=== PATIENT | female | born 1990 | race African-American/Black ===

== ENCOUNTER 2024-10-02 19:23 | Emergency (ER) | payer OTHER, SELFPAY ==
[2024-10-02 19:30] VITALS: BP 156/94; PULSE 119; RESP 16; TEMP 37.1; O2SAT 98; BMI 29.9
[2024-10-02] MEDS: ACETAMINOPHEN 325 MG TABLET 975 MG PO (20:07)
[2024-10-02 20:27] VITALS: PULSE 80; O2SAT 98
[2024-10-02 22:51] LABS: Add Manual Diff / Slide Review NO; Hematocrit 38.9 % (36-46); Hemoglobin 12.8 g/dL (12.0-16.0); Lymphocytes Absolute Auto 1700 /uL (1100-4500); Mean Corpuscular HGB Conc 33.0 % (30-36); Mean Corpuscular Hemoglobin 28.0 PG (26-34); Mean Corpuscular Volume 84.9 fL (80-100); Platelet Count 249 X10^3/uL (150-400)
[2024-10-02 22:57] LABS: Acetaminophen < 10 ug/mL (10-30); Alanine Aminotransferase 22 IU/L (<35); Albumin 4.4 g/dL (3.5-5.0); Albumin Globulin Ratio 1.0 (1.0-2.8); Alkaline Phosphatase 88 U/L (38-126); Blood Urea Nitrogen 9 mg/dL (7-17); Calcium 9.2 mg/dL (8.4-10.2); Carbon Dioxide 22 mmol/L (22-32); Chloride 107 mmol/L (98-107); Estimated Glomerular Filt Rate > 60 mL/min (>60); Ethanol (ETOH) < 10 mg/dL (<10); Globulin 4.3 g/dL (1.7-4.1); Glucose 99 mg/dL (70-99); HEMOLYSIS < 15 (0-50); Potassium 3.8 mmol/L (3.4-5.1); Salicylate < 1.0 mg/dL (<20); Sodium 138 mmol/L (137-145); Total Protein 8.7 g/dL (6.3-8.2)
--- NOTE | 2024-10-02 23:07 | EKG_ITS ---
[address] [address] Test Date: 2024-10-02 Pat Name: Mirtha Morales Department: [facility] Room: Gender: Female Toe Stripper: tabby : 1990 Requested By: Order Number: [id number] Reading MD: Rodri Jimenez Measurements Intervals [place] Rate: 65 P: 56 WA: 126 QRS: 62 QRSD: 78 T: 47 QT: 410 QTc: 426 Interpretive Statements Normal sinus rhythm Electronically Signed On 10-05-2024 8:01:56 PDT by Rodri Jimenez
[2024-10-02 23:11] LABS: UR Morphine/Opiate cutoff 300 Negative (Negative); Ur Specific Gravity Normal (Normal); Urine MDMA Negative (Negative); Urine Methamphetamines Negative (Negative); Urine Tetrahydrocannabinol Negative (Negative); Urine Tricyclic Antidepressant Negative (Negative)
[2024-10-02 23:28] LABS: TSH w/ Reflex to FT4 1.40 uIU/mL (0.47-4.68)
[2024-10-02 23:46] LABS: Culture Indicated Urine Cult Not Indicated
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
--- NOTE | 2024-10-03 02:09 | PC.NURSE ---
CHIEF INNOVATION OFFICER note: Attempting to find placement for patient. Called the following places with the following results: [facility]: 0202 spoke with Kristin, they have no beds. [facility]: 0203 spoke with Linda. She said they do have beds, but the patient has to have insurance. She told me that the patient has to start her medicaid application to at least be considered for admission. Thanked her for her help. I will speak to Dr. Ceja
[2024-10-03 11:32] LABS: COVID19 -Nasal RAPID Negative (Negative)
--- NOTE | 2024-10-03 11:32 | PC.NURSE ---
Per Joan ASSEMBLER EQUIPMENT pt status changed to moderate risk. Pt is no longer endorsing SI.
--- NOTE | 2024-10-03 13:41 | PC.NURSE ---
This RN breaking sitter for lunch. Pt laying on stretcher, NAD, RA, breathing even/equal/unlabored at this time.
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
--- NOTE | 2024-10-03 16:51 | CM.SWNOTE ---
ED LOW VOLTAGE ELECTRICIAN Note Patient endorses preference to go to a local facility. LOW VOLTAGE ELECTRICIAN assistance patient in identifying and accessing insurance throughout the day and patient has current [employer] insurance. LOW VOLTAGE ELECTRICIAN calls [facility] intake, it is reported that they are at capacity. LOW VOLTAGE ELECTRICIAN calls [facility] intake, it is initially reported that they have beds. LOW VOLTAGE ELECTRICIAN faxes clinicals for review. [facility] calls back and reports that they will not have beds until tomorrow. LOW VOLTAGE ELECTRICIAN calls [facility] intake, it is reported that they have beds and can review patient. LOW VOLTAGE ELECTRICIAN faxes clinicals for review. Bonnie at [facility] calls to report that patient is accepted by Accepting provider Marta Claudio RN-RN [phone]. It is reported that patient can arrive at 2100 or after. LOW VOLTAGE ELECTRICIAN calls [facility], it is reported that they cannot accommodate the transfer. LOW VOLTAGE ELECTRICIAN calls [facility], it is reported that they can pick up operator patient at 2120. Plan: patient to transfer to [facility] via BLS this evening for voluntary inpatient treatment. Joan Menchaca, COMPUTER REPAIR INSTRUCTOR
--- NOTE | 2024-10-03 20:15 | PC.NURSE ---
Patient assessment deferred at this time patient is resting with eyes closed, respirations are even and nonlabored
[2024-10-03 21:03] VITALS: BP 115/60; PULSE 92; RESP 16; TEMP 36.5; O2SAT 100
== END 2024-10-03 21:10 ==
PROVIDERS: Family Medicine; Emergency Provider Family Medicine
DX: R45.851 Suicidal ideations (principal); F32.2 Major depressive disorder, single episode, severe without psychotic features
CPT/HCPCS: 80053; 80305; 80320; 80329; 81003; 81015; 81025; 84443; 85025; 87635; 93005; 99284; G0480